=== PATIENT | female | born 1970 | race Caucasian/White ===

== ENCOUNTER 2020-02-23 13:04 | Emergency (ER) | payer OTHER, MEDICARE ==
[~2020-02-23] VITALS: Ht 167.6 cm; Wt 72.6 kg
[2020-02-23] MEDS ORDERED: SODIUM CHLORIDE 0.9% 250ML 250 ML IV ONE (13:15)
[2020-02-23 13:58] LABS: BASOPHILS # (AUTO) 0.1 (0.0-0.1); BASOPHILS % 0.6 % (0.0-1.0); EOSINOPHILS # (AUTO) 1.4 (0.0-0.4); EOSINOPHILS % 11.1 % (0.0-6.0); LYMPHOCYTES # (AUTO) 1.4 (1.0-3.2); LYMPHOCYTES % 11.4 % (18.0-39.1); MEAN CORPUSCULAR HEMOGLOBIN 30.4 pg (28-32); MEAN CORPUSCULAR HGB CONC 31.5 g/dL (31-35); MEAN CORPUSCULAR VOLUME 96.5 fL (81-99); MONOCYTES # (AUTO) 0.5 (0.2-0.8); MONOCYTES % 4.3 % (4.4-11.3); NEUTROPHILS # (AUTO) 8.5 (2.1-6.9); PLATELET COUNT 140 x10e3/uL (140-360); RED BLOOD COUNT 2.27 x10e6/uL (3.6-5.1); RED CELL DISTRIBUTION WIDTH 17.1 % (11.7-14.4)
[2020-02-23 14:12] LABS: HEMATOCRIT 21.9 % (34.2-44.1); HEMOGLOBIN 6.9 g/dL (12.0-16.0)
[2020-02-23 14:16] LABS: ALBUMIN 2.6 g/dL (3.5-5.0); ANION GAP 21.5 mmol/L (8-16); CALCIUM 8.2 mg/dL (8.4-10.2); CREATININE, SERUM 5.07 mg/dL (0.57-1.11); POTASSIUM 4.5 mmol/L (3.5-5.1)
[2020-02-23] MEDS ORDERED: SODIUM CHLORIDE 0.9% 250ML 250 ML ONE (16:33)
[2020-02-23 18:44] VITALS: BP 147/105
== END 2020-02-23 18:47 | disposition home or self-care (01) ==
LOC: ER 13:29
DX: D64.9 Anemia, unspecified (principal); N18.6 End stage renal disease; Z99.2 Dependence on renal dialysis; Z94.2 Lung transplant status
CPT/HCPCS: 36415; 80053; 84702; 85025; 86850; 86900; 86920; 99284; J7050; P9016

== ENCOUNTER 2021-03-16 08:46 | Observation (INO) | payer MEDICARE, OTHER ==
[~2021-03-16] VITALS: Ht 162.6 cm; Wt 49.9 kg
[2021-03-16 09:09] LABS: BASOPHILS # (AUTO) 0.1 (0.0-0.1); BASOPHILS % 0.9 % (0.0-1.0); EOSINOPHILS # (AUTO) 0.5 (0.0-0.4); EOSINOPHILS % 7.2 % (0.0-6.0); HEMATOCRIT 24.3 % (34.2-44.1); LYMPHOCYTES # (AUTO) 1.6 (1.0-3.2); LYMPHOCYTES % 22.5 % (18.0-39.1); MEAN CORPUSCULAR HEMOGLOBIN 29.4 pg (28-32); MEAN CORPUSCULAR VOLUME 105.2 fL (81-99); MONOCYTES # (AUTO) 0.3 (0.2-0.8); MONOCYTES % 4.6 % (4.4-11.3); NEUTROPHILS # (AUTO) 4.4 (2.1-6.9); NEUTROPHILS % 63.2 % (38.7-80.0); PLATELET COUNT 284 x10e3/uL (140-360); RED BLOOD COUNT 2.31 x10e6/uL (3.6-5.1); RED CELL DISTRIBUTION WIDTH 14.1 % (11.7-14.4)
[2021-03-16 09:21] LABS: INR 1.02; PARTIAL THROMBOPLASTIN TIME 29.6 seconds (23.8-35.5); PROTHROMBIN TIME 14.2 seconds (11.9-14.5)
[2021-03-16 09:28] LABS: HEMOGLOBIN 6.8 g/dL (12.0-16.0); POTASSIUM 3.7 mmol/L (3.5-5.1)
[2021-03-16 09:29] LABS: ALBUMIN 2.4 g/dL (3.5-5.0); ALBUMIN/GLOBULIN RATIO 0.9 (0.8-2.0); ANION GAP 17.7 mmol/L (8-16); CALCIUM 7.6 mg/dL (8.4-10.2); CREATININE, SERUM 4.84 mg/dL (0.57-1.11)
[2021-03-16] MEDS ORDERED: ONDANSETRON HCL INJ 2MG/ML 2ML 2 MG/ML VIAL IV PRN (09:45)
[2021-03-16] MEDS ORDERED: HYDRALAZINE HCL 20 MG/ML VIAL IV ONE (11:00)
[2021-03-16] MEDS ORDERED: IBUPROFEN 600 MG TAB PO ONE (11:00)
[2021-03-16 11:51] VITALS: BP 126/90
[2021-03-16] MEDS ORDERED: XANAX0.5 MG PO ×2 (12:55→22:54)
[2021-03-16 13:45] VITALS: BP 126/90
[2021-03-16 16:08] VITALS: BP 129/52
[2021-03-16] MEDS: ALPRAZOLAM 0.5 MG TAB PO PRN (16:45)
[2021-03-16] MEDS ORDERED: MYCOPHENOLATE MOFETIL 250 MG CAP PO SCH (17:00)
[2021-03-16] MEDS ORDERED: SODIUM CHLORIDE 0.9% 250ML 250 ML ONE (19:57)
[2021-03-16 20:00] VITALS: BP 167/109
[2021-03-16] MEDS ORDERED: TACROLIMUS 1 MG CAP PO SCH (21:00)
[2021-03-16] MEDS: MYCOPHENOLATE MOFETIL 250 MG CAP PO SCH (22:05)
[2021-03-16] MEDS ORDERED: LEVOCETIRIZINE D5 MG PO (22:54)
[2021-03-16] MEDS ORDERED: SODIUM BICARBO650 MG PO (22:54)
[2021-03-16] MEDS ORDERED: PRAVASTATIN SOD40 MG PO (22:54)
[2021-03-16] MEDS ORDERED: LASIX80 MG PO (22:54)
[2021-03-16] MEDS ORDERED: CLONIDINE HCL0.1 MG PO (22:54)
[2021-03-16] MEDS ORDERED: HYDRALAZINE HC100 MG PO (22:54)
[2021-03-16] MEDS ORDERED: PROMETHAZINE HC25 M1 PO (22:54)
[2021-03-16] MEDS ORDERED: NEURONTIN100 MG PO (22:54)
[2021-03-16] MEDS ORDERED: ZENPEP DR 5,001 EAC1 PO (22:54)
[2021-03-16] MEDS ORDERED: ZITHROMAX250 MG PO (22:54)
[2021-03-16] MEDS ORDERED: PRILOSEC OTC20 MG PO (22:54)
[2021-03-16] MEDS ORDERED: WELLBUTRIN SR150 MG PO (22:54)
[2021-03-16] MEDS ORDERED: ONDANSETRON ODT4 MG PO (22:54)
[2021-03-16] MEDS ORDERED: CELLCEPT500 MG PO (22:54)
[2021-03-16] MEDS ORDERED: TACROLIMUS1 MG PO (22:54)
[2021-03-16] MEDS ORDERED: DILTIAZEM ER240 M1 PO (22:54)
[2021-03-16] MEDS ORDERED: CALCIUM ACETAT667 M2 PO (22:54)
[2021-03-16] MEDS ORDERED: MEPRON750 MG/5 M PO (22:54)
[2021-03-16] MEDS ORDERED: COREG12.5 MG PO (22:54)
[2021-03-16] MEDS ORDERED: PREDNISONE5 MG PO (22:54)
[2021-03-16] MEDS ORDERED: FLONASE ALLERG9.9 ML INH (22:54)
[2021-03-16] MEDS ORDERED: ZOLPIDEM TARTRATE 5 MG TAB PO PRN (23:30)
[2021-03-16] MEDS: HYDRALAZINE HCL 25 MG TAB PO SCH (23:49)
[2021-03-16] MEDS: ACETAMINOPHEN 325 MG TAB PO PRN (23:50)
[2021-03-16] MEDS: CLONIDINE HCL 0.1 MG TAB PO SCH (23:50)
[2021-03-17] VITALS: BP 174/99
[2021-03-17] MEDS: GABAPENTIN 100 MG CAP PO SCH ×3 (00:40→16:51)
[2021-03-17 04:00] VITALS: BP 152/86
[2021-03-17 07:04] LABS: ALBUMIN 2.1 g/dL (3.5-5.0); ALBUMIN/GLOBULIN RATIO 0.9 (0.8-2.0); ANION GAP 14.8 mmol/L (8-16); CALCIUM 7.5 mg/dL (8.4-10.2); CREATININE, SERUM 3.14 mg/dL (0.57-1.11); POTASSIUM 3.8 mmol/L (3.5-5.1)
[2021-03-17 07:28] LABS: BASOPHILS # (AUTO) 0.1 (0.0-0.1); BASOPHILS % 0.7 % (0.0-1.0); EOSINOPHILS # (AUTO) 0.5 (0.0-0.4); EOSINOPHILS % 7.4 % (0.0-6.0); HEMATOCRIT 28.5 % (34.2-44.1); HEMOGLOBIN 8.8 g/dL (12.0-16.0); LYMPHOCYTES # (AUTO) 1.4 (1.0-3.2); LYMPHOCYTES % 20.1 % (18.0-39.1); MEAN CORPUSCULAR HEMOGLOBIN 30.1 pg (28-32); MEAN CORPUSCULAR HGB CONC 30.9 g/dL (31-35); MEAN CORPUSCULAR VOLUME 97.6 fL (81-99); MONOCYTES # (AUTO) 0.5 (0.2-0.8); MONOCYTES % 7.5 % (4.4-11.3); NEUTROPHILS # (AUTO) 4.4 (2.1-6.9); NEUTROPHILS % 63.1 % (38.7-80.0); PLATELET COUNT 232 x10e3/uL (140-360); RED BLOOD COUNT 2.92 x10e6/uL (3.6-5.1); RED CELL DISTRIBUTION WIDTH 16.1 % (11.7-14.4)
[2021-03-17 07:34] VITALS: BP 172/93
[2021-03-17 08:07] LABS: % IRON SATURATION 90 % (15-50); IRON 113 ug/dL (50-170); TOTAL IRON BINDING CAPACITY 125 ug/dL (261-478); TRANSFERRIN 89 mg/dL (180-382)
[2021-03-17] MEDS: HYDRALAZINE HCL 25 MG TAB PO SCH ×2 (08:26→16:51)
[2021-03-17] MEDS: CLONIDINE HCL 0.1 MG TAB PO SCH ×2 (08:27→16:51)
[2021-03-17] MEDS: MYCOPHENOLATE MOFETIL 250 MG CAP PO SCH (08:27)
[2021-03-17] MEDS: CARVEDILOL 12.5 MG TAB PO SCH ×2 (08:28→16:51)
[2021-03-17] MEDS: ALPRAZOLAM 0.5 MG TAB PO PRN (08:28)
[2021-03-17] MEDS: ACETAMINOPHEN 325 MG TAB PO PRN (08:30)
[2021-03-17 08:49] VITALS: BP 172/93
[2021-03-17] MEDS ORDERED: TACROLIMUS 1 MG CAP PO SCH (09:00)
[2021-03-17] MEDS ORDERED: DILTIAZEM HCL ER 120 MG CAP PO SCH (09:00)
[2021-03-17 12:22] VITALS: BP 116/68
[2021-03-17 15:45] VITALS: BP 123/87
[2021-03-17] MEDS ORDERED: OMEPRAZOLE 20 MG CAP PO SCH (17:00)
[2021-03-18] MEDS ORDERED: PREDNISONE 5 MG TAB PO SCH (09:00)
== END 2021-03-17 17:44 | disposition home or self-care (01) ==
LOC: ER 09:33 → ERHOLD 09:34 → MED/SURG 11:14
PROVIDERS: ADMIT Family Medicine; ATTEND Family Medicine
DX: I12.0 Hypertensive chronic kidney disease with stage 5 chronic kidney disease or end stage renal disease (principal); N18.6 End stage renal disease; Z99.2 Dependence on renal dialysis; E84.0 Cystic fibrosis with pulmonary manifestations; Z94.2 Lung transplant status; D64.9 Anemia, unspecified; Z20.822 Contact with and (suspected) exposure to COVID-19
CPT/HCPCS: 36415 ×2; 80053 ×2; 80197; 83540; 83735; 84466; 85025 ×2; 85610; 85730; 86705; 86706; 86850; 86900; 86920; 87340; 99284; G0378 ×2; J0360; J7050; J7507 ×2; J7517 ×2; P9016; U0002

== ENCOUNTER 2021-06-05 09:25 | Emergency (ER) | payer MEDICARE ==
[~2021-06-05] VITALS: Ht 162.6 cm; Wt 49.9 kg
[~2021-06-05 09:25] MED LIST: CALCIUM ACETAT667 M2 PO; CELLCEPT500 MG PO; CLONIDINE HCL0.1 MG PO; COREG12.5 MG PO; DILTIAZEM ER240 M1 PO; FLONASE ALLERG9.9 ML INH; HYDRALAZINE HC100 MG PO; LASIX80 MG PO; LEVOCETIRIZINE D5 MG PO; MEPRON750 MG/5 M PO; NEURONTIN100 MG PO; ONDANSETRON ODT4 MG PO; PRAVASTATIN SOD40 MG PO; PREDNISONE5 MG PO; PRILOSEC OTC20 MG PO; PROMETHAZINE HC25 M1 PO; SODIUM BICARBO650 MG PO; TACROLIMUS1 MG PO; WELLBUTRIN SR150 MG PO; XANAX0.5 MG PO; ZENPEP DR 5,001 EAC1 PO; ZITHROMAX250 MG PO
[2021-06-05] MEDS ORDERED: DEXAMETHASONE SOD PHOS 10 MG/1 ML VIAL IV ONE (10:00)
[2021-06-05] MEDS ORDERED: SODIUM CHLORIDE 0.9% 1000ML 1,000 ML IV SCH (10:00)
[2021-06-05] MEDS ORDERED: CEFEPIME 1 GM in SODIUM CHLORIDE 0.9% 50ML 50 ML IV ONE ×2 (10:00→12:30)
[2021-06-05 10:23] LABS: BASOPHILS # (AUTO) 0.1 (0.0-0.1); BASOPHILS % 0.6 % (0.0-1.0); EOSINOPHILS # (AUTO) 0.2 (0.0-0.4); HEMATOCRIT 35.6 % (34.2-44.1); HEMOGLOBIN 10.3 g/dL (12.0-16.0); LYMPHOCYTES # (AUTO) 0.7 (1.0-3.2); MEAN CORPUSCULAR HEMOGLOBIN 30.6 pg (28-32); MEAN CORPUSCULAR HGB CONC 28.9 g/dL (31-35); MEAN CORPUSCULAR VOLUME 105.6 fL (81-99); MONOCYTES % 8.8 % (4.4-11.3); NEUTROPHILS # (AUTO) 8.5 (2.1-6.9); NEUTROPHILS % 76.8 % (38.7-80.0); PLATELET COUNT 187 x10e3/uL (140-360); RED BLOOD COUNT 3.37 x10e6/uL (3.6-5.1); RED CELL DISTRIBUTION WIDTH 19.2 % (11.7-14.4)
[2021-06-05 10:34] LABS: ALBUMIN 2.8 g/dL (3.5-5.0); ALBUMIN/GLOBULIN RATIO 0.8 (0.8-2.0); ANION GAP 23.4 mmol/L (8-16); CREATININE, SERUM 4.65 mg/dL (0.57-1.11); POTASSIUM 4.4 mmol/L (3.5-5.1)
[2021-06-05 11:17] LABS: BAND NEUTROPHILS % (MANUAL) 7 %; EOSINOPHILS % (MANUAL) 3 % (0-7); LYMPHOCYTES % (MANUAL) 6 % (19-48); METAMYELOCYTES % (MANUAL) 1 % (0-0); MONOCYTES % (MANUAL) 5 % (3.4-9.0); NEUTROPHILS % (MANUAL) 76 % (40-74)
[2021-06-05 11:18] LABS: PLATELET ESTIMATE ADEQUATE; PLATELET MORPHOLOGY COMMENT NORMAL; RBC MORPHOLOGY COMMENT NORMAL
[2021-06-05] MEDS ORDERED: ALPRAZOLAM 0.5 MG TAB PO ONE (11:30)
[2021-06-05] MEDS ORDERED: LORAZEPAM INJ 2 MG/ML VIAL IV ONE (12:15)
[2021-06-05] MEDS ORDERED: Vancomycin IV 1 GM in SODIUM CHLORIDE 0.9% 250ML 250 ML IV STA (12:19)
[2021-06-05] MEDS ORDERED: LORAZEPAM INJ 2 MG/ML VIAL ONE (12:21)
[2021-06-05] MEDS ORDERED: ALBUTEROL SULF 0.083% NEB SOLN 3 ML NEB ONE (12:48)
[2021-06-05] MEDS ORDERED: PROPOFOL IV EMULSION 50 ML IV ONE (12:50)
[2021-06-05 12:56] LABS: ABG HCO3 27 mmol/L (22-26); ABG PCO2 59 mmHg (35-45); ABG PH 7.26 (7.35-7.45); ABG PO2 86 mmHg (80-105); ABG TCO2 29
[2021-06-05] MEDS ORDERED: ETOMIDATE 2 MG/ML 10 ML INJ IV ONE (13:16)
[2021-06-05] MEDS ORDERED: SUCCINYLCHOLINE CHLORIDE 20 MG/ML 10ML VIAL ONE (13:16)
[2021-06-05] MEDS ORDERED: SODIUM CHLORIDE 0.9% 250ML IRRIG IR SCH (13:30)
[2021-06-05] MEDS ORDERED: PROPOFOL IV EMULSION 50 ML IV SCH ×2 (13:30→14:00)
[2021-06-05 13:45] LABS: CLARITY,URINE CLEAR (CLEAR); COLOR,URINE YELLOW (YELLOW); KETONES,URINE NEGATIVE (NEGATIVE); LEUKOCYTE ESTERASE ,URINE NEGATIVE (NEGATIVE); NITRITE,URINE NEGATIVE (NEGATIVE); PROTEIN,URINE DIPSTICK 1+ (NEGATIVE); URINE UROBILINOGEN 0.2 mg/dL (0.2 - 1)
[2021-06-05 14:00] LABS: BACTERIA,URINE RARE /HPF; EPITHELIAL CELLS,URINE RARE /LPF; RBC,URINE 0-5 /HPF (0-5); WBC,URINE (MAN) 0-5 /HPF (0-5)
[2021-06-05] MEDS ORDERED: PROPOFOL IV EMULSION 10MG/ML 100 ML IV SCH (14:00)
== END 2021-06-05 14:15 | disposition other institution (70) ==
LOC: ER 09:34
DX: U07.1 COVID-19 (principal); J96.01 Acute respiratory failure with hypoxia; I12.0 Hypertensive chronic kidney disease with stage 5 chronic kidney disease or end stage renal disease; N18.6 End stage renal disease; Z99.2 Dependence on renal dialysis; Z94.2 Lung transplant status; F41.9 Anxiety disorder, unspecified; D64.9 Anemia, unspecified
CPT/HCPCS: 36415; 36600; 51700; 71045; 80053; 81001; 82805; 83605; 83880; 85025; 87040; 87086; 93005; 94799; 99285; J0330; J0692; J1100; J2060; J2704; J3370; J7030; J7050; U0002